=== PATIENT | female | born 1975 | race Two or more races ===

== ENCOUNTER → 2024-12-10 | Outpatient (CLI) | payer BC, SELFPAY ==
[2024-12-10 10:38] LABS: Alanine Aminotransferase 25 U/L (10-49); Albumin, Serum 4.2 gm/dL (3.5-5.0); Albumin/Globulin Ratio 1.4 (1.2-2.2); Alkaline Phosphatase 104 U/L (46-116); Anion Gap 7 (7-16); Aspartate Amino Transferase 18 U/L (0-34); BUN/Creatinine Ratio 20 Ratio (12-20); Bilirubin,Total 0.3 mg/dL (0.3-1.2); Blood Urea Nitrogen 12 mg/dL (9-23); Calcium 9.1 mg/dL (8.3-10.6); Calcium (Corrected) 9.1 mg/dL (8.5-10.1); Carbon Dioxide 24.6 mMol/L (20.0-31.0); Chloride 108 mMol/L (98-107); Cholesterol 160 mg/dL (132-200); Creatinine (Component) 0.6 mg/dL (0.6-1.3); Glucose 149 mg/dL (74-106); HDL Cholesterol 40 mg/dL (40-60); LDL Cholesterol,Calculated 82 mg/dL (0-130); Osmolality,Calculated 282 (275-295); Sodium 140 mMol/L (136-145); Total Protein 7.2 gm/dL (5.7-8.2); Triglycerides 189 mg/dL (30-150); eGFR > 60 See Note
[2024-12-10 10:39] LABS: T4 (Thyroxine) 8.3 mcg/dL (4.5-10.9)
== END | disposition home or self-care (01) ==
PROVIDERS: PCP Family Medicine; Referring Provider Family Medicine; Visit Provider Family Medicine
DX: I10 Essential (primary) hypertension (principal); E11.9 Type 2 diabetes mellitus without complications; K21.9 Gastro-esophageal reflux disease without esophagitis; G43.109 Migraine with aura, not intractable, without status migrainosus; N92.4 Excessive bleeding in the premenopausal period
CPT/HCPCS: 36415; 80053; 80061; 84436; 84443

== ENCOUNTER 2025-03-26 23:24 | Emergency (ER) | payer SELFPAY ==
[2025-03-26 23:25] VITALS: BMI 42.3
[2025-03-26 23:34] VITALS: BP 179/94; PULSE 102; RESP 22; TEMP 36.7; O2SAT 95
--- NOTE | 2025-03-26 23:40 | PD.EDRME ---
Rapid Medical Screening Exam [facility] Arrival date/time: 03/26/25 23:24 50F with history of gallstone pancreatitis (no gallbladder anymore) presents to ED with 1 day of epigastric pain and N/V. Patient took some Nucynta w/o relief. Chief Complaint: Abdominal Pain Vital signs: Vital Signs Temperature 98.1 F 03/26/25 23:34 Pulse Rate 102 H 03/26/25 23:34 Respiratory Rate 22 H 03/26/25 23:34 Blood Pressure 179/94 H 03/26/25 23:34 Pulse Oximetry (%) 95 03/26/25 23:34 Oxygen Delivery Method Room Air 03/26/25 23:34
--- NOTE | 2025-03-27 | XR_ITS ---
Examination: Abdomen sonogram, Limited Date and time of exam: March 27, 2025, 0003 hours INDICATIONS: Sharp upper abdominal pain radiating to the back, months, cholecystectomy 2018 Technique: Real-time levine scale transabdominal sonographic images of the upper abdomen obtained. Findings: Absent gallbladder Common bile duct 0.9 cm no stones Pancreatic head 2.4 cm Liver 17.7 cm fatty infiltration irregular contour no focal liver lesions Normal hepatopetal portal venous lobe Patent IVC IMPRESSION: Common bile duct 0.9 cm, if biliary colic is a clinical consideration, suggest MRCP follow-up Moderate hepatomegaly, primary Protos later disease
--- NOTE | 2025-03-27 00:08 | XR_ITS ---
Examination: CT abdomen with intravenous contrast CT pelvis with intravenous contrast 2-D coronal reconstructions 2-D sagittal reconstructions Date and time of exam: March 27, 2025, 0318 hours, comparison June 09, 2021 INDICATIONS: Onset abdominal pain, anemia this week. CTDI: vol (mGy) 17.8 DLP: (mGycm) 1056 Technique: Multiple axial sections of the abdomen and pelvis have been obtained. 64 slice high-resolution scanner used. 3 mm axial sections have been obtained, post intravenous injection 60 cc of [id number] 2-D sagittal, coronal reconstructions obtained. Low dose protocols were performed. One or more of the following dose reduction techniques were used; automated exposure control, adjustment of the mA and/or KV according to patient size, use of iterative reconstruction technique. Findings: Diffuse fatty infiltration throughout the liver, pneumobilia Absent gallbladder No common bile duct stones Acute pancreatitis, no pseudocyst Moderate renal scar formation Aorta normal size No pericecal inflammatory change No diverticulitis Increased density in the umbilical tract Retroverted uterus with multiple low density areas in the lower uterine segment and cervix Urinary bladder intact Grade 1 anterolisthesis L5 on S1 with moderate degenerative disc disease at this level IMPRESSION: Pneumobilia, consider hepatobiliary sonography follow-up, if cholangitis is a clinical consideration, suggest MRCP follow-up Acute pancreatitis, moderately severe, no pancreatic pseudocyst Multiple low-density areas in the lower uterine segment and cervix, recommend transabdominal transvaginal pelvic sonography follow-up
--- NOTE | 2025-03-27 00:08 | PD.EDABDPN ---
ED Abdominal Pain RME/HPI General Chief Complaint: Abdominal Pain Stated complaint: UPPER ABD PAIN Time seen by provider: 03/27/25 00:01 Arrival date/time: 03/26/25 23:24 Source: patient Limitations: no limitations RME / HPI RME / HPI narrative: 03/26/25 23:24 50F with history of gallstone pancreatitis (no gallbladder anymore) presents to ED with 1 day of epigastric pain and N/V. Patient took some Nucynta w/o relief. DR. RODRIGUEZ MAIN ED EVALUATION: 50 y/o female with Hx of DM, Ectopic , and Endometriosis, as well as PSHx of Cholecystectomy, Hernia repair x2, and presents to ED c/o sudden severe RUQ abdominal pain x 2 hours. Denies history of hypercholesterolemia. Reports allergy to Tramadol. MD complaint: abdominal pain Onset (ago): hour(s) (2) Location: RUQ Severity: severe Related Data Home Medications ?Medication ?Instructions ?Recorded ?Confirmed omeprazole 40 mg capsule,delayed 40 mg PO QDAY 04/27/21 07/13/21 release promethazine 25 mg tablet 25 mg PO QDAY PRN Nausea 04/27/21 07/13/21 tapentadol 100 mg tablet (Nucynta) 100 mg PO 6 TIMES DAILY 04/27/21 07/13/21 Held on 06/12/21. Instructions: f/u with PCP topiramate 100 mg capsule,extended 100 mg PO QDAY 04/27/21 07/13/21 release 24 hr (Trokendi XR) atorvastatin 20 mg tablet 20 mg PO HS 07/13/21 07/13/21 ibuprofen 600 mg tablet 600 mg PO QDAY 07/13/21 07/13/21 metformin 500 mg tablet 500 mg PO BID 07/13/21 07/13/21 Previous Rx's ?Medication ?Instructions ?Recorded methylprednisolone 4 mg tablets in See Rx Instructions .Route 12/15/21 a dose pack (Medrol (Scotty)) .COMPLEX #21 tabs oxycodone-acetaminophen 5 mg-325 1 tab PO Q8H PRN pain #5 tabs 12/15/21 mg tablet (Percocet) Allergies Allergy/AdvReac Type Severity Reaction Status Date / Time tramadol AdvReac Severe SEIZURE Verified 03/26/25 23:28 Review of Systems Review of Systems Systems Reviewed: All systems reviewed, normal except as documented Past Medical History Past Medical History NEUROLOGIC: Positive Neurological Disorders and Migraine CARDIAC: Positive Cardiac Disorders, Hypercholesterolemia, Hypertension (NO MEDS) and Varicose Veins GASTROINTESTINAL: Positive Gastrointestinal Disorders, Gall Bladder Disease, Gastroesophageal Reflux Disease and Obesity REPRODUCTIVE: Positive Endometriosis and Previous Pregnancies (X4) MUSCULOSKELETAL: Positive Musculoskeletal Disorders (MONONEURITIS MULTIPLEX, BILATERAL CARPAL TUNNEL SYNDROME), Arthritis and Fibromyalgia OTHER HISTORY: 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 Nontympanic. Obese. Neurologic exam shows Olga Coma Scale of 15. General Limitations: Present no limitations Course Quality Measures none Orders Category Date Time Status CT Screening NOW Care 03/27/25 00:08 Active Insert IV NOW Care 03/26/25 23:40 Active MRI Screening NOW Care 03/27/25 01:[address] abdomen pelvis w con Stat Exams 03/27/25 00:08 Ordered MR MRCP Stat Exams 03/27/25 Ordered US gall bladder Stat Exams 03/27/25 00:00 Taken CBC Stat Lab 03/26/25 00:00 Completed CMP [Comprehensive Metabolic Panel] Stat Lab 03/26/25 00:00 Completed HCG Qualitative,Urine Stat Lab 03/26/25 23:39 Ordered Lipase Stat Lab 03/26/25 00:00 Completed Triglycerides Stat Lab 03/26/25 00:00 Completed Urinalysis, C/S if Indicated Stat Lab 03/26/25 23:39 Ordered HYDROmorphone INJ [Dilaudid Inj] Med 03/27/25 00:08 Discontinued 1 mg IVP X1 ONE HYDROmorphone INJ [Dilaudid Inj] Med 03/27/25 00:49 Discontinued 1 mg IVP X1 ONE Metoclopramide Inj [Reglan Inj] Med 03/27/25 00:08 Discontinued 10 mg IVP X1 ONE Ondansetron Inj [Zofran Inj] Med 03/26/25 23:40 Discontinued 4 mg IV X1 ONE Pantoprazole Inj [Protonix Inj] Med 03/26/25 23:40 Discontinued 40 mg IVP X1 ONE Sodium Chloride 0.9% 1000 ml [Ns] 1,000 ml Med 03/27/25 01:56 Active IV 999 mls/hr Vital Signs Vital signs: Vital Signs Temperature 98.1 F 03/26/25 23:34 Pulse Rate 102 H 03/26/25 23:34 Respiratory Rate 22 H 03/26/25 23:34 Blood Pressure 179/94 H 03/26/25 23:34 Pulse Oximetry (%) 95 03/26/25 23:34 Oxygen Delivery Method Room Air 03/26/25 23:34 Abdominal Pain MDM MDM Narrative MDM Narrative:: Scribe Attestation: Dayna Mann, anjelica scribing for and in the presence of Dr. Rodriguez. Provider Notation: Although this document has been carefully reviewed, there may still be some phonetic and other typographical errors. These errors are purely grammatical due to imperfections in the software program and should not be construed in any way to compromise the substance of the patient's medical care during this visit. I interpreted all labs. Patient received Dilaudid 1 mg IV x 2 as well as Reglan 10 mg IV, Zofran 4 mg IV and Protonix 40 mg IV. Patient was hydrated with a liter normal saline. Lipase was greater than 3500. Glucose was elevated. Patient was not in diabetic ketoacidosis. Triglycerides were elevated. I reviewed the patient's past medical history. She was here in May 2021 with 2 common bile duct stones even though she had a cholecystectomy back in 2017. Apparently those stones were presumed to have spontaneously passed because the patient improved on her own. Tonight ultrasound showed a 9 mm common bile duct which is normal in size when a person is status post cholecystectomy. No obvious choledocholithiasis. Alkaline phosphatase was minimally elevated. Patient will require MRCP in the morning. If the MRCP does not show choledocholithiasis the patient can be admitted here and if it does show choledocholithiasis the patient will need to be transferred. Case will be signed out to Dr. Arguello pending the MRCP. Patient data External records reviewed:: [facility] previous records (Reviewed prior ED records from 03/02/22. Patient was seen for Corneal abrasion.) Clinical information provided by:: patient Social determinants that could affect healthcare access:: none Patient has the following chronic illnesses:: Migraine, Hypercholesterolemia, Hypertension, Varicose Veins, Gall Bladder Disease, Gastroesophageal Reflux Disease, Obesity, Endometriosis, Arthritis and Fibromyalgia How is presenting disease/condition affected by chronic disease/condition?: exacerbated by Evaluation data The following diagnostics were reviewed and interpreted by me:: lab results and radiology exam(s) Lab and/or radiology exams considered but not ordered:: None Interpretation Summary: RADIOLOGY Gall Bladder US: Findings: The study is limited by bowel gas and patient body habitus. The liver is enlarged and demonstrates heterogenous increased echogenicity and irregular margins. S/p cholecystectomy. The common duct is normal in caliber at 0.9 cm in s/p cholecystectomy. No free fluid is demonstrated on the submitted images. The portal vein is patent with hepatopetal flow and normal wave Doppler spectral analysis. Impression: Cirrhosis. No evidence of choledocholithiasis, if the clinical suspicion for choledocholithiasis is still high consider correlation with MRCP. Abdomen/Pelvis CT: Pending official radiology report. Medications / Prescriptions Medications or Prescriptions considered but not ordered:: None Medication administrations:: Medication Administration History Sodium Chloride (Ns) 1,000 mls @ 999 mls/hr IV .Q1H1M ONE Stop: 03/27/25 02:56 Discontinued Medications Hydromorphone HCl (Hydromorphone Inj 2 Mg/Ml Vial) 1 mg IVP X1 ONE Stop: 03/27/25 00:09 Last Admin: 03/27/25 00:20 Dose: 1 mg Documented By: Hydromorphone HCl (Hydromorphone Inj 2 Mg/Ml Vial) 1 mg IVP X1 ONE Stop: 03/27/25 00:50 Last Admin: 03/27/25 01:05 Dose: 1 mg Documented By: JUAN R Metoclopramide HCl (Metoclopramide Inj 5 Mg/Ml Vial 2 Ml) 10 mg IVP X1 ONE; Protocol Stop: 03/27/25 00:09 Last Admin: 03/27/25 01:06 Dose: 10 mg Documented By: JUAN R Ondansetron HCl (Ondansetron Inj 2 Mg/Ml Inj 2 Ml) 4 mg IV X1 ONE; Protocol Stop: 03/26/25 23:41 Last Admin: 03/27/25 00:11 Dose: 4 mg Documented By: Pantoprazole Sodium (Pantoprazole Inj 40 Mg Vial) 40 mg IVP X1 ONE Stop: 03/26/25 23:41 Last Admin: 03/27/25 00:11 Dose: 40 mg Documented By: See above if any Consultations Consultation(s) initiated? (list below): No Diagnosis Differential diagnosis abdominal pain: abdominal pain, calculus of kidney, pancreatitis, small bowel obstruction and other (GERD, choledocholithiasis, ureterolithiasis) Most likely diagnosis given after review of the tests above:: None Admission Indicated Admission indicated?: not indicated Admission Request Was there a request for admission?: No Disposition Plan Disposition Plan: other (specify) Discharge Plan Prescriptions/Referrals Prescriptions/Med Rec: No Action metformin 500 mg tablet 500 mg PO BID atorvastatin 20 mg Tablet 20 mg PO HS ibuprofen 600 mg tablet 600 mg PO QDAY methylprednisolone [Medrol (Scotty)] 4 mg tablets,dose pack See Rx Instructions .ROUTE .COMPLEX Qty: 21 0RF Rx Instructions: Medrol Dose Scotty use as directed on package label oxycodone-acetaminophen [Percocet] 5-325 mg tablet 1 tab PO Q8H MDD 3 PRN (Reason: pain) Qty: 5 0RF omeprazole 40 mg capsule,delayed release(DR/EC) 40 mg PO QDAY promethazine 25 mg tablet 25 mg PO QDAY PRN (Reason: Nausea) Nucynta 100 mg tablet 100 mg PO 6 TIMES DAILY Trokendi XR 100 mg capsule,extended release 24hr 100 mg PO QDAY Problem List Clinical Impression: Pancreatitis Patient/Caregiver Discharge Instructions Print Language: Malaysian
[2025-03-27] MEDS: ONDANSETRON INJ 2 MG/ML INJ 2 ML 4 MG IV (00:11)
[2025-03-27 00:20] LABS: Basophils # (Auto) 0.0 Thou/mm3 (0.0-0.2); Basophils % (Auto) 0 % (0-2.5); Eosinophils # (Auto) 0.1 Thou/mm3 (0.0-0.5); Eosinophils % (Auto) 0 % (0-10); Hematocrit 34.2 % (36.0-46.0); Hemoglobin 10.5 g/dL (12.0-16.0); Immature Granulocytes Auto 0.07 Thou/mm3 (0.00-0.00); Lymphocytes # (Auto) 1.8 Thou/mm3 (1.0-4.8); Lymphocytes % (Auto) 15 % (10-50); Mean Corpuscular HGB Conc 30.7 g/dl (31.0-37.0); Mean Corpuscular Hemoglobin 22.7 pg (25.0-35.0); Mean Corpuscular Volume 74 fL (80-100); Monocytes # (Auto) 0.7 Thou/mm3 (0.0-0.8); Monocytes % (Auto) 5 % (0-12); Neutrophils # (Auto) 9.7 Thou/mm3 (1.8-7.7); Neutrophils % (Auto) 79 % (37-80); Nucleated Red Blood Cell # 0.00 Thou/mm3 (0.00-0.00); Nucleated Red Blood Cell % 0 /100 WBC (0); Platelet Count 392 Thou/mm3 (140-440); RDW Standard Deviation 43.4 fL (36.4-46.3); Red Blood Count 4.62 Miln/mm3 (4.00-5.20); White Blood Count 12.3 Thou/mm3 (3.6-11.0)
[2025-03-27] MEDS: HYDROmorphone INJ 2 MG/ML VIAL 1 MG IVP ×3 (00:20→02:59)
[2025-03-27 00:46] LABS: Alanine Aminotransferase 11 U/L (10-49); Albumin, Serum 4.3 gm/dL (3.5-5.0); Albumin/Globulin Ratio 1.3 (1.2-2.2); Alkaline Phosphatase 122 U/L (46-116); Anion Gap 12 (7-16); Aspartate Amino Transferase 13 U/L (0-34); BUN/Creatinine Ratio 13 Ratio (12-20); Bilirubin,Total 0.3 mg/dL (0.3-1.2); Blood Urea Nitrogen 10 mg/dL (9-23); Calcium 9.1 mg/dL (8.3-10.6); Calcium (Corrected) 9.1 mg/dL (8.5-10.1); Carbon Dioxide 22.1 mMol/L (20.0-31.0); Chloride 102 mMol/L (98-107); Creatinine (Component) 0.8 mg/dL (0.6-1.3); Estimated Creatinine Clearance 112.9 mL/min (>60); Globulin 3.2 gm/dL (2.3-3.5); Glucose 319 mg/dL (74-106); Osmolality,Calculated 282 (275-295); Potassium 4.1 mMol/L (3.4-5.1); Sodium 136 mMol/L (136-145); Total Protein 7.5 gm/dL (5.7-8.2); Triglycerides 280 mg/dL (30-150); eGFR > 60 See Note
[2025-03-27 01:01] LABS: Lipase > 3500 U/L (12-53)
[2025-03-27] MEDS: METOCLOPRAMIDE INJ 5 MG/ML VIAL 2 ML 10 MG IVP (01:06)
--- NOTE | 2025-03-27 02:03 | PRELIM_ITS ---
Gallbladder ultrasound with Doppler and wave Doppler spectral analysis. March 27, 2025 at 0030 hours Clinical history: Rule out CBD stone. Comparison: None available at the time of this report. Findings: The study is limited by bowel gas and patient body habitus. The liver is enlarged and demonstrates heterogenous increased echogenicity and irregular margins. S/p cholecystectomy. The common duct is normal in caliber at 0.9 cm in s/p cholecystectomy. No free fluid is demonstrated on the submitted images. The portal vein is patent with hepatopetal flow and normal wave Doppler spectral analysis. Impression: Cirrhosis. No evidence of choledocholithiasis, if the clinical suspicion for choledocholithiasis is still high consider correlation with MRCP. Report Electronically Signed By: Terence Bro 03/27/2025 2:03:38 AM [EST]
[2025-03-27 02:24] LABS: Collection Type, Urine Clean Catch
[2025-03-27 02:40] LABS: Bacteria,Urine Rare; Bilirubin,Urine Negative (Negative); Blood,Urine Negative (Negative); Clarity,Urine Clear (Clear/Hazy); Color,Urine Lt-Yellow (Lt Yel-Yel); Culture Indicated,Urine Not Indicated; Glucose, Urine 4+ (Negative); HCG Qualitative,Urine Negative; Hyaline Casts,Urine < 1 /hpf (0-1); Ketones,Urine 1+ (Negative); Leukocyte Esterase,Urine Negative (Negative); Nitrite,Urine Negative (Negative); PH,Urine 6.0 (5.0-7.0); Protein,Urine 1+ (Neg - Trace); RBC,Urine 1 /hpf (0-3); Specific Gravity,Urine 1.029 (1.001-1.035); Squamous Epithelial Cell,Urine 3 /hpf (0-5); Urobilinogen,Urine Negative mg/dL (0.0-1.0); WBC,Urine < 1 /hpf (0-5)
[2025-03-27] MEDS: SODIUM CHLORIDE 0.9% 1000 ML 1,000 ML 999 ML IV (03:01)
--- NOTE | 2025-03-27 04:14 | PC.NURSE ---
Pt educated on risks of signing out AMA up to and including . Pt verbalized understanding. IV D/C with Cath in tact. MD and charge aware.
--- NOTE | 2025-03-27 04:50 | PRELIM_ITS ---
CT scan of the abdomen and pelvis with intravenous contrast (axial sections with sagittal and coronal reformats) March 27, 2025 AT 0318 hours Clinical History: Abdominal pain. Correlated with prior Ultrasound of March 27, 2025. Findings: The lung bases are clear. The spleen, kidneys and adrenals are unremarkable. Peripancreatic fat stranding. No pancreatic duct dilation. No collections. Liver steatosis. Hepatomegaly. Status post cholecystectomy. No biliary duct dilation. Pneumobilia. Small hiatus hernia. No evidence of bowel obstruction. No evidence of appendicitis. There is no mesenteric or retroperitoneal adenopathy. The urinary bladder is unremarkable. There is no free fluid or free air. The osseous structures are unremarkable. Heterogenous cystic appearance of the cervix. Enlarged heterogenous uterus. Impression: 1. Acute pancreatitis. 2. Heterogenous cystic appearance of the cervix and enlarged heterogenous uterus, further evaluation to exclude cervical/uterine cancer is recommended. 3. Pneumobilia, consider cholangitis in the differential diagnosis. 4. Hepatomegaly associated with liver steatosis, suspicious for steatohepatitis. Report Electronically Signed By: Terence Bro 03/27/2025 4:49:39 AM [EST]
== END 2025-03-27 08:11 | disposition left against medical advice (07) ==
PROVIDERS: Physician Assistant; Emergency Provider Emergency Medicine; PCP Family Medicine
DX: K85.90 Acute pancreatitis without necrosis or infection, unspecified (principal); E11.9 Type 2 diabetes mellitus without complications
CPT/HCPCS: 36415; 74177; 76705; 80053; 81001; 81025; 83690; 84478; 85025; 96374; 96375; 96376; 99283; A4649; J1171; J2405; J2470; J2765; J7030; Q9967